=== PATIENT | female | born 1975 | race African-American/Black ===

== ENCOUNTER 2022-05-14 07:05 | Emergency (ER) | payer SELFPAY ==
[~2022-05-14] VITALS: Ht 165.1 cm; Wt 68.0 kg
[2022-05-14 13:44] LABS: CLARITY URINE CLEAR (CLEAR); COLOR URINE YELLOW (YELLOW); KETONES URINE NEGATIVE (NEGATIVE); LEUKOCYTE ESTERASE URINE 3+ (NEGATIVE); NITRITE URINE NEGATIVE (NEGATIVE); OCCULT BLOOD URINE NEGATIVE (NEGATIVE); PROTEIN URINE NEGATIVE (NEGATIVE)
[2022-05-14 14:20] LABS: *AMPHETAMINES SCREEN URINE NEGATIVE (NEGATIVE); *BARBITURATES SCREEN URINE NEGATIVE (NEGATIVE); METHADONE URINE SCREEN NEGATIVE (NEGATIVE); OPIATES URINE SCREEN NEGATIVE (NEGATIVE); PHENCYCLIDINE URINE SCREEN NEGATIVE (NEGATIVE)
[2022-05-14 14:23] LABS: *BENZODIAZEPINES SCREEN URINE PRESUMTIVE POSITIVE (NEGATIVE); *COCAINE SCREEN URINE PRESUMTIVE POSITIVE (NEGATIVE)
[2022-05-14 14:24] LABS: CANNABINOID URINE SCREEN PRESUMTIVE POSITIVE (NEGATIVE)
[2022-05-14 15:00] VITALS: BP 153/88
[2022-05-14 15:40] LABS: CHLORIDE 102 mEq/L (98-107)
[2022-05-14 16:01] LABS: ETHANOL BLOOD < 10 mg/dL
[2022-05-14] MEDS ORDERED: ALBUTEROL (0.083%) 2.5MG/3ML NEB HHN SCH (18:30)
== END 2022-05-14 19:40 | disposition home or self-care (01) ==
LOC: ER 07:05 → EDBD 07:05 → ER 19:40
DX: F19.10 Other psychoactive substance abuse, uncomplicated (principal); I49.9 Cardiac arrhythmia, unspecified
CPT/HCPCS: 36415; 80053; 80305; 80307; 80320; 81003; 84443; 93005; 99284; G0480